=== PATIENT | female | born 1990 | race Two or more races ===

== ENCOUNTER 2019-04-25 17:47 | Emergency (ER) | payer MEDICAID ==
[~2019-04-25] VITALS: Ht 160 cm; Wt 52.2 kg
[2019-04-25 18:14] VITALS: BP 97/66
[2019-04-25] MEDS ORDERED: SODIUM CHLORIDE 0.9% 1,000 ML IV ONE (18:30)
[2019-04-25] MEDS ORDERED: ONDANSETRON HCL 4 MG/2 ML VIAL IV ONE (18:45)
[2019-04-25 19:01] LABS: Basophils # (auto) 0 uL; Basophils % (auto) 0.1 % (0.0-2.0); Eosinophils # (auto) 0 uL; Mean Corpuscular Hemoglobin 24.4 pg (28.0-32.0); Monocytes # (auto) 0.6 uL; Neutrophils % (auto) 78.9 % (37.0-80.0)
[2019-04-25 19:03] LABS: Eosinophils % (auto) 0.2 % (0.0-7.0); Hematocrit 38.3 % (36.0-46.0); Hemoglobin 12.6 g/dL (12.2-16.2); Lymphocytes # (auto) 0.8 uL; Lymphocytes % (auto) 11.8 % (10.0-50.0); Mean Corpuscular Hgb Conc. 32.9 g/dL (32.0-36.0); Mean Corpuscular Volume 74.1 fL (80.0-100.0); Neutrophils # (auto) 5.6 uL; Nucleated Red Blood Cells % 0.1 %; Platelet Count (auto) 245 10^3/uL (140-450); Red Blood Cells 5.16 10^6/uL (4.0-5.20); Red Cell Distribution Width 17.7 % (11.8-14.3); White Blood Cell 7.1 10^3/uL (4.4-10.8)
[2019-04-25 19:22] LABS: Albumin 2.7 g/dL (3.4-5.0); BUN/Creatinine Ratio 26.3; Calcium 8.4 mg/dL (8.5-10.1); Potassium 3.4 mmol/L (3.5-5.1)
[2019-04-25 19:25] LABS: Bilirubin, Total 0.4 mg/dL (0.2-1.0)
== END 2019-04-25 23:25 | disposition left against medical advice (07) ==
LOC: ER 17:47
DX: O20.0 Threatened abortion (principal); O21.0 Mild hyperemesis gravidarum; Z87.891 Personal history of nicotine dependence; Z90.49 Acquired absence of other specified parts of digestive tract; Z88.5 Allergy status to narcotic agent; Z3A.08 8 weeks gestation of pregnancy
CPT/HCPCS: 36415; 80053; 82962; 84702; 85025

== ENCOUNTER 2023-04-02 05:34 | Emergency (ER) | payer MEDICAID ==
[~2023-04-02] VITALS: Ht 160 cm; Wt 56.8 kg
[2023-04-02 06:06] VITALS: BP 138/84; PULSE 104; RESP 18; O2SAT 99
== END 2023-04-02 07:36 | disposition left against medical advice (07) ==
LOC: ER 05:34
DX: R10.13 Epigastric pain (principal); R11.2 Nausea with vomiting, unspecified; Z53.21 Procedure and treatment not carried out due to patient leaving prior to being seen by health care provider

== ENCOUNTER 2025-03-23 04:48 | Emergency (ER) | payer MEDICAID ==
[~2025-03-23] VITALS: Ht 160 cm; Wt 61.2 kg
--- NOTE | 2025-03-23 05:01 | ED.PDOC ---
HPI (NEURO) HPI Comments PT [place] FROM HOME WITH A CC OF HEADACHE X 5 DAYS WITH SOME NV TODAY, PT IS A&OX4, AMB, HAS NO KNOWN MEDICAL HX, PT VSS AT THIS TIME, BS 99,. PATIENT REPORTS WAS SEEN ABOUT SEVEN DAYS AGO [facility] FOR SAME SYMPTOMS WAS GIVEN P.O. MEDICATIONS AND DISCHARGED. DENIES WORST HEADACHE OF HER LIFE, TRAUMA, DIZZINESS, NUMBNESS OR WEAKNESS. Chief Complaint: Headache Time Seen by MD: 04:57 Primary Care Provider: christine Hernandez Reviewed Notes: Nurses Notes, Housing Quality Standard Inspector Notes, Medications, Allergies Information Source: Patient Past Medical History PAST MEDICAL HISTORY: Denies Surgical History: Appendectomy [employer] History: No Pertinent [employer] History Family History Family History: Reviewed,noncontributory to illness, No family hx of Cancer, No family hx of DM, No family hx of Heart rosalinda, No family hx of HTN, No family hx ofKidney rosalinda, No family hx of Liver rosalinda, No family hx of Lung rosalinda, No family hx of Stroke Social History Smoker: Quit Less Than 1 Year Alcohol: Denies ETOH Use Drugs: Denies Drug Use Lives In: Home All Other Systems: Reviewed and Negative (SEE HPI) Physical Exam General Appearance: No Apparent Distress, Normal HEENT: Normal ENT Inspection, Pharynx Normal, TMs Normal Neck: Full Range of Motion, Non-Tender Respiratory: Lungs Clear, No Respiratory Distress, Normal Breath Sounds Cardiovascular: No Edema, No JVD, No Murmur, No Gallop, Normal Peripheral Pulses, Regular Rate/Rhythm Breast Exam: Deferred Gastrointestinal: No Organomegaly, Non Tender, No Pulsatile Mass, Normal Bowel Sounds, Soft Genitalia: Deferred Pelvic: Deferred Rectal: Deferred Extremities: Normal range of motion Musculoskeletal : Apperance: Normal Neurologic: Alert, No Motor Deficits, Normal Affect, Normal Mood, No Sensory Deficits Cerebellar Function: Normal Reflexes: NOT DONE Skin: Dry, Normal Color, Warm Lymphatic: No Adenopathy Was a procedure done? Was a procedure done?: No Differential Diagnosis (SZ) Seizure: Meningitis Headache: Cluster, Migraine X-Ray, Labs, Meds, VS Vital Signs Date Time Temp Pulse Resp B/P (MAP) Pulse Ox O2 Delivery O2 Flow Rate FiO2 03/23/25 05:06 97.9 106 18 112/76 (88) 92 97.9 03/23/25 04:50 98.7 101 18 131/86 99 98.7 Current Medications Medications (Trade) Dose Ordered Sig/Laura Route Start Time Stop Time Status Last Admin Prochlorperazine Edisylate (Compazine Inj) 5 mg ONCE ONCE IV 03/23/25 05:00 03/23/25 05:01 DC 03/23/25 05:46 Ketorolac Tromethamine (Toradol Injection) 30 mg ONCE ONCE IV 03/23/25 05:00 03/23/25 05:01 DC 03/23/25 05:45 Dexamethasone Sodium Phosphate (Decadron Injection) 10 mg ONCE ONCE IV 03/23/25 05:00 03/23/25 05:01 DC 03/23/25 05:45 Acetaminophen (Tylenol Tablet Or Capsule) 500 mg ONCE ONCE PO 03/23/25 05:00 03/23/25 05:01 DC 03/23/25 05:46 Sodium Chloride 1,000 ml @ 1,000 mls/hr Q1H ONCE IV 03/23/25 05:00 03/23/25 05:59 DC 03/23/25 05:20 Time of 1ST Reevaluation: 05:00 Reevaluation 1ST: Unchanged Reevaluation 2ND: Improved Patient Education/Counseling: Diagnosis, Treatment, Need For Follow Up Family Education/Counseling: No Family Present Departure 1 Departure Time of Disposition: 07:40 (Patient likely with a migraine. We will discharge patient home with outpatient follow up) Impression: Primary Impression: Headache Qualified Codes: G44.89 - Other headache syndrome Disposition: 01 HOME / SELF CARE / HOMELESS Condition: Stable Additional Instructions: You likely had a migraine. You received medications in the ER. You can take tylenol and motrin as needed for pain. You should stay well rested and well hydrated. It is important to follow up with your regular doctor within one week. If your symptoms worsen or you have any other concerns then please return to the ER. Discharged With: Self Critical Care Note Critical Care Time?: No Stability Stability form required: HALIMA Ashley Mar 23, 2025 05:01 TOLU SOUTH MD Mar 23, 2025 07:40
[2025-03-23] MEDS: SODIUM CHLORIDE 0.9% 1,000 ML IV ONE (05:20)
[2025-03-23] MEDS: KETOROLAC TROMETH 30 MG/ML 1ML VIAL IV ONE (05:45)
[2025-03-23] MEDS: ACETAMINOPHEN 500 MG TAB or CAP PO ONE (05:46)
[2025-03-23] MEDS: PROCHLORPERAZINE EDISYLATE 5 MG/ML 2ML VIAL IV ONE (05:46)
[2025-03-23 07:53] VITALS: BP 107/69; PULSE 83; RESP 18; TEMP 98.4; O2SAT 98
== END 2025-03-23 07:56 | disposition home or self-care (01) ==
LOC: ER 04:48 → EDBD 04:48 → ER 07:56
DX: R51.9 Headache, unspecified (principal); Z90.49 Acquired absence of other specified parts of digestive tract; Z87.891 Personal history of nicotine dependence
CPT/HCPCS: 82947; 96361; 96374; 96375; 99284; J0780; J1100; J1885; J7030